=== PATIENT | female | born 1995 | race African-American/Black ===

== ENCOUNTER 2018-01-12 21:19 | Emergency (ER) | payer OTHER ==
[~2018-01-12] VITALS: Ht 170.2 cm; Wt 77.3 kg
[2018-01-12 21:32] VITALS: BP 142/79; TEMP 98.5
[2018-01-12] MEDS ORDERED: TROKEND100 (23:39)
[2018-01-13 00:19] VITALS: PULSE 78
== END 2018-01-13 00:20 | disposition home or self-care (01) ==
LOC: COL.ER 21:19
DX: M54.2 Cervicalgia (principal); R51 Headache; V43.52XA Car driver injured in collision with other type car in traffic accident, initial encounter

== ENCOUNTER 2018-01-18 10:11 | Emergency (ER) | payer OTHER ==
[~2018-01-18] VITALS: Ht 170.2 cm; Wt 77.3 kg
[~2018-01-18 10:11] MED LIST: TROKEND100
[2018-01-18] MEDS ORDERED: FLEXERIL 1010 MG/TAB PO (10:47)
[2018-01-18 10:52] VITALS: BP 141/80; PULSE 79; TEMP 97.5
== END 2018-01-18 10:52 | disposition home or self-care (01) ==
LOC: COL.ER 10:11
DX: S16.1XXA Strain of muscle, fascia and tendon at neck level, initial encounter (principal); S46.919A Strain of unspecified muscle, fascia and tendon at shoulder and upper arm level, unspecified arm, initial encounter; V89.2XXA Person injured in unspecified motor-vehicle accident, traffic, initial encounter

== ENCOUNTER 2018-03-13 16:00 | Outpatient (RCR) | payer OTHER ==
[~2018-03-13 16:00] MED LIST changes: +FLEXERIL 1010 MG/TAB PO
== END 2018-03-28 11:01 | disposition home or self-care (01) ==
LOC: WSC 16:00
DX: S13.4XXD Sprain of ligaments of cervical spine, subsequent encounter (principal); F17.210 Nicotine dependence, cigarettes, uncomplicated; V49.60XD Unspecified car occupant injured in collision with unspecified motor vehicles in traffic accident, subsequent encounter